=== PATIENT | female | born 1935 | race Caucasian/White ===

== ENCOUNTER 2018-07-04 10:46 | Inpatient (IN) | payer BC ==
[~2018-07-04 10:46] MED LIST: GLYCOPYRROLATE 0.4 MG INJ; NEOSTIGMINE 3 MG/3 ML SYRINGE
[2018-07-04] MEDS ORDERED: PROPOFOL 20 ML (12:55)
[2018-07-04] MEDS ORDERED: ROCURONIUM 50 MG INJ ×2 (12:55→12:59)
[2018-07-04] MEDS ORDERED: MIDAZOLAM 1 MG/ML 2 ML INJ (12:55)
[2018-07-04] MEDS ORDERED: FENTAnyl 50 MCG/ML VIAL (12:55)
[2018-07-04] MEDS ORDERED: CEFAZOLIN 1 GM INJ (12:55)
[2018-07-04] MEDS ORDERED: ROPIVACAINE 0.5 % 30 ML VIAL (12:56)
[2018-07-04] MEDS ORDERED: POLYMYXIN B 500000 UNIT INJ (12:57)
[2018-07-04] MEDS: CEFAZOLIN 2 GM/50 ML (PMX) 50 ML IVPB (13:25)
[2018-07-04] MEDS: TRANEXAMIC ACID 1,000 MG in NS 100 ML INTRA-OP X1 IVPB (13:30)
[2018-07-04] MEDS ORDERED: ONDANSETRON 4 MG INJ (14:08)
[2018-07-04] MEDS ORDERED: FAMOTIDINE 20 MG INJ (14:08)
[2018-07-04] MEDS ORDERED: DEXAMETHASONE 4 MG/ML 1 ML INJ (14:08)
[2018-07-04] MEDS ORDERED: METOCLOPRAMIDE 10 MG INJ (14:08)
[2018-07-04] MEDS: BACITRACIN 50000 UNITS INJ IRR (14:10)
[2018-07-04] MEDS ORDERED: PHENYLephrine (100 MCG/ML) 5ML SYG (14:11)
[2018-07-04] MEDS ORDERED: ALBUMIN HUMAN 25% 100 ML (14:12)
[2018-07-04] MEDS: POLYMYXIN B 500000 UNIT INJ IRR (14:12)
[2018-07-04] MEDS: TRANEXAMIC ACID 1,000 MG in NS 100 ML PRE-OP X1 IVPB (14:35)
[2018-07-04] MEDS ORDERED: NALBUPHINE HCL (10 MG/1 ML) INJ IV (15:00)
[2018-07-04] MEDS ORDERED: morphine 2 MG INJ IV ×2 (15:00)
[2018-07-04] MEDS ORDERED: HYDROmorphONE 0.5 MG/0.5 ML SYG IV (15:00)
[2018-07-04] MEDS ORDERED: METOCLOPRAMIDE 10 MG INJ IV (15:00)
[2018-07-04] MEDS ORDERED: OXYCODONE/ACETAMINOPHEN (5/325) TAB PO (15:00)
[2018-07-04] MEDS ORDERED: NALOXONE (0.4 MG/ML) INJ IV ×2 (15:00→16:30)
[2018-07-04] MEDS ORDERED: HYDROCODONE/APAP (5/325) TAB PO (15:00)
[2018-07-04] MEDS ORDERED: FENTAnyl 50 MCG/ML VIAL IV ×3 (15:00)
[2018-07-04] MEDS ORDERED: LABETALOL HCL 20MG INJ IV (15:00)
[2018-07-04] MEDS ORDERED: DIPHENHYDRAMINE 50 MG INJ IV ×3 (15:00→16:30)
[2018-07-04] MEDS ORDERED: HYDROmorphONE 1 MG/5 ML IV SYRINGE IV ×3 (15:00)
[2018-07-04] MEDS ORDERED: ONDANSETRON 4 MG INJ IV ×2 (15:00)
[2018-07-04] MEDS ORDERED: EPHEDrine SULFATE 50 MG/5 ML SYG IV (15:00)
[2018-07-04] MEDS ORDERED: ALBUMIN HUMAN 5% 250 ML IV (15:00)
[2018-07-04] MEDS ORDERED: hydrALAzine 20 MG INJ IV (15:00)
[2018-07-04] MEDS ORDERED: ACETAMINOPHEN 500 MG TAB PO (15:00)
[2018-07-04] MEDS ORDERED: NEOSTIGMINE 3 MG/3 ML SYRINGE ×5 (16:09)
[2018-07-04] MEDS: LACTATED RINGER'S 1,000 ML IV* (16:26)
[2018-07-04] MEDS ORDERED: oxyCODONE 5 MG TAB PO (16:30)
[2018-07-04] MEDS ORDERED: BISACODYL 10 MG SUPP PR (16:30)
[2018-07-04] MEDS ORDERED: MAGNESIUM HYDROXIDE 30ML CUP PO (16:30)
[2018-07-04] MEDS ORDERED: NA PHOSPHATE/BIPHOS 133 ML ENEMA PR (16:30)
[2018-07-04] MEDS ORDERED: NACL 0.9% 3 ML SYG IV (16:30)
[2018-07-04] MEDS ORDERED: SENNA/DOCUSATE NA (8.6MG/50MG) TAB PO (16:30)
[2018-07-04] MEDS ORDERED: BETHANECHOL 25 MG TAB PO (16:30)
[2018-07-04] MEDS ORDERED: CEFAZOLIN 2 GM/50 ML (PMX) 0 ML IVPB (16:58)
[2018-07-04] MEDS: ASPIRIN (EC) 325 MG TAB PO (17:02)
[2018-07-04] MEDS: DOCUSATE SODIUM 100 MG CAP PO (17:02)
[2018-07-04] MEDS: ONDANSETRON 4 MG INJ IV ×2 (17:07→22:30)
[2018-07-04] MEDS: CEFAZOLIN 1 GM/50 ML (PMX) 50 ML IVPB (17:09)
[2018-07-04] MEDS: MEPERIDINE 25 MG INJ IV (17:28)
[2018-07-04] MEDS: SOD CHLORIDE 0.9% 1,000 ML IV (18:46)
[2018-07-04] MEDS: GABAPENTIN 300 MG CAP PO (20:21)
[2018-07-04] MEDS: HYDROmorphONE 0.5 MG/0.5 ML SYG IV (22:51)
[2018-07-05] MEDS: CEFAZOLIN 1 GM/50 ML (PMX) 50 ML IVPB ×2 (01:16→08:46)
[2018-07-05] MEDS: ONDANSETRON 4 MG INJ IV ×2 (03:39→13:03)
[2018-07-05] MEDS: SOD CHLORIDE 0.9% 1,000 ML IV ×3 (04:49→22:37)
[2018-07-05] MEDS: PANTOPRAZOLE (EC) 40 MG TAB PO (05:07)
[2018-07-05 05:25] LABS: ADD MAN DIFF? NO
[2018-07-05 05:29] LABS: WHITE BLOOD COUNT 9.5 10^3/ul (4.8-10.8)
[2018-07-05 05:29] LABS: BASOPHILS % 0.1 % (0.0-2.0); HEMATOCRIT 25.7 % (37.0-47.0); HEMOGLOBIN 8.1 g/dl (12.0-16.0); LYMPHOCYTES # 0.8 10^3/ul (0.8-2.9); MEAN CORPUSCULAR HGB CONC 31.5 g/dl (32.0-37.0); MEAN CORPUSCULAR VOLUME 98.5 fl (82.0-101.0); MEAN PLATELET VOLUME 10.1 fl (7.4-10.4); MONOCYTE # 0.4 10^3/ul (0.3-0.9); MONOCYTES % 4.1 % (0.0-11.0); NEUTROPHIL # 8.3 10^3/ul (1.6-7.5); NEUTROPHILS % 87.5 % (39.0-77.0); PLATELET COUNT 194 10^3/UL (140-415); RED BLOOD COUNT 2.61 10^6/ul (4.20-5.40); RED CELL DISTRIBUTION WIDTH 13.5 % (11.5-14.5)
[2018-07-05 06:11] LABS: ANION GAP 9 (5-13); BLOOD UREA NITROGEN 20 mg/dl (7-20); CALCIUM 8.5 mg/dl (8.4-10.2); CARBON DIOXIDE 26 mmol/L (21-31); CHLORIDE 104 mmol/L (97-110); CREATININE 0.91 mg/dl (0.44-1.00); GLUCOSE 121 mg/dl (70-220); POTASSIUM 5.8 mmol/L (3.5-5.1); SODIUM 139 mmol/L (135-144)
[2018-07-05] MEDS: DOCUSATE SODIUM 100 MG CAP PO ×2 (08:45→21:44)
[2018-07-05] MEDS: FERROUS FUMARATE (SR) TAB PO ×2 (08:45→21:44)
[2018-07-05] MEDS: GABAPENTIN 300 MG CAP PO ×4 (08:45→21:44)
[2018-07-05] MEDS: ASPIRIN (EC) 325 MG TAB PO (08:46)
[2018-07-05] MEDS ORDERED: CELECOXIB 200 MG CAP PO (09:00)
[2018-07-05] MEDS: METOPROLOL (XL) 25 MG TAB PO (09:13)
[2018-07-05] MEDS: ALENDRONATE 70 MG TAB PO (09:50)
[2018-07-05] MEDS: NA POLYST SULFON 15 GM/60 ML BTL PR (09:51)
[2018-07-05] MEDS: oxyCODONE 5 MG TAB PO ×4 (09:57→21:52)
[2018-07-05] MEDS: CELECOXIB 100 MG CAP PO ×2 (13:02→21:45)
[2018-07-05 16:12] LABS: POTASSIUM 4.8 mmol/L (3.5-5.1)
[2018-07-06 05:17] LABS: ADD MAN DIFF? NO
[2018-07-06 05:25] LABS: WHITE BLOOD COUNT 8.6 10^3/ul (4.8-10.8)
[2018-07-06 05:25] LABS: BASOPHILS % 0.1 % (0.0-2.0); EOSINOPHILS # 0.1 10^3/ul (0.0-0.5); EOSINOPHILS % 1.2 % (0.0-7.0); HEMATOCRIT 23.8 % (37.0-47.0); HEMOGLOBIN 7.5 g/dl (12.0-16.0); LYMPHOCYTES # 1.5 10^3/ul (0.8-2.9); LYMPHOCYTES % 17.9 % (15.0-51.0); MEAN CORPUSCULAR HEMOGLOBIN 31.1 pg (29.0-33.0); MEAN CORPUSCULAR HGB CONC 31.5 g/dl (32.0-37.0); MEAN CORPUSCULAR VOLUME 98.8 fl (82.0-101.0); MEAN PLATELET VOLUME 10.1 fl (7.4-10.4); MONOCYTE # 0.8 10^3/ul (0.3-0.9); MONOCYTES % 9.5 % (0.0-11.0); NEUTROPHIL # 6.1 10^3/ul (1.6-7.5); PLATELET COUNT 181 10^3/UL (140-415); RED BLOOD COUNT 2.41 10^6/ul (4.20-5.40); RED CELL DISTRIBUTION WIDTH 13.8 % (11.5-14.5)
[2018-07-06 05:46] LABS: MAGNESIUM 1.9 mg/dl (1.7-2.5)
[2018-07-06 05:50] LABS: ANION GAP 8 (5-13); BLOOD UREA NITROGEN 22 mg/dl (7-20); CALCIUM 8.2 mg/dl (8.4-10.2); CARBON DIOXIDE 27 mmol/L (21-31); CHLORIDE 103 mmol/L (97-110); CREATININE 1.18 mg/dl (0.44-1.00); GLUCOSE 91 mg/dl (70-220); POTASSIUM 4.8 mmol/L (3.5-5.1); SODIUM 138 mmol/L (135-144)
[2018-07-06] MEDS: PANTOPRAZOLE (EC) 40 MG TAB PO (06:10)
[2018-07-06] MEDS: oxyCODONE 5 MG TAB PO ×2 (06:10→10:19)
[2018-07-06] MEDS: LEVOTHYROXINE 100 MCG TAB PO (06:10)
[2018-07-06] MEDS: CELECOXIB 100 MG CAP PO (08:45)
[2018-07-06] MEDS: ASPIRIN (EC) 325 MG TAB PO (08:45)
[2018-07-06] MEDS: FERROUS FUMARATE (SR) TAB PO (08:46)
[2018-07-06] MEDS: GABAPENTIN 300 MG CAP PO ×2 (08:46→13:57)
[2018-07-06] MEDS: DOCUSATE SODIUM 100 MG CAP PO (08:46)
[2018-07-06] MEDS: METOPROLOL (XL) 25 MG TAB PO (09:00)
== END 2018-07-06 16:05 | disposition home health service (06) | DRG 468 ==
LOC: REC 10:46 → MS1 17:49
PROC: 0SR904A Replacement of Right Hip Joint with Ceramic on Polyethylene Synthetic Substitute, Uncemented, Open Approach (ICD-10-PCS; principal; 2018-07-04 12:30)
PROC: 0SP90JZ Removal of Synthetic Substitute from Right Hip Joint, Open Approach (ICD-10-PCS; 2018-07-04 12:30)
DX: T84.89XA Other specified complication of internal orthopedic prosthetic devices, implants and grafts, initial encounter (principal); T84.84XA Pain due to internal orthopedic prosthetic devices, implants and grafts, initial encounter; Z96.641 Presence of right artificial hip joint
CPT/HCPCS: 73530; 80048; 83735; 84132; 85025; 86850; 86900; 86901; 87070; 87075; 88300; 97110; 97116; 97162; 97166; 97530

== ENCOUNTER 2019-02-27 06:32 | Inpatient (IN) | payer BC ==
[2019-02-27] MEDS: TRANEXAMIC ACID 1GM/100ML(PMX) 100 ML AT CLOSURE X1 IVPB (06:30)
[2019-02-27] MEDS: TRANEXAMIC ACID 1GM/100ML(PMX) 100 ML AT INCISION X1 IVPB (06:30)
[2019-02-27] MEDS: CEFAZOLIN 2 GM/50 ML (PMX) 50 ML (FOR WT < 120 KG) IVPB (06:30)
[2019-02-27] MEDS: ACETAMINOPHEN 1000MG/100ML IV 100 ML IVPB (07:22)
[2019-02-27] MEDS: LACTATED RINGER'S 1,000 ML IV ×3 (07:22→13:11)
[2019-02-27] MEDS: DEXAMETHASONE 4 MG/ML 1 ML INJ IV (07:22)
[2019-02-27] MEDS ORDERED: TRANEXAMIC ACID 1GM/100ML(PMX) 200 ML (07:28)
[2019-02-27] MEDS ORDERED: PROPOFOL 20 ML (08:53)
[2019-02-27] MEDS ORDERED: CEFAZOLIN 1 GM INJ (08:53)
[2019-02-27] MEDS ORDERED: LIDOCAINE 2% (SDV) 5 ML INJ (08:53)
[2019-02-27] MEDS ORDERED: FENTAnyl 50 MCG/ML VIAL (09:17)
[2019-02-27] MEDS ORDERED: ONDANSETRON 4 MG INJ (09:38)
[2019-02-27] MEDS ORDERED: FAMOTIDINE 20 MG INJ (09:38)
[2019-02-27] MEDS: POLYMYXIN B 500000 UNIT INJ (09:46)
[2019-02-27] MEDS: BACITRACIN 50000 UNITS INJ (09:46)
[2019-02-27] MEDS ORDERED: ROPIVACAINE 0.2% 20 ML VIAL (10:44)
[2019-02-27] MEDS ORDERED: oxyCODONE 5 MG TAB PO (11:30)
[2019-02-27] MEDS ORDERED: NALOXONE (0.4 MG/ML) INJ IV (11:30)
[2019-02-27] MEDS ORDERED: MAGNESIUM HYDROXIDE 30ML CUP PO (11:30)
[2019-02-27] MEDS ORDERED: NACL 0.9% 3 ML SYG IV (11:30)
[2019-02-27] MEDS: CEFAZOLIN 2 GM/50 ML (PMX) 50 ML IVPB ×2 (12:26→19:57)
[2019-02-27] MEDS ORDERED: PROCHLORPERAZINE 10 MG INJ IV (12:30)
[2019-02-27] MEDS ORDERED: MEPERIDINE 25 MG INJ IV (12:30)
[2019-02-27] MEDS ORDERED: FENTAnyl 50 MCG/ML VIAL IV (12:30)
[2019-02-27] MEDS ORDERED: HYDROmorphONE 1 MG/5 ML IV SYRINGE IV ×2 (12:30)
[2019-02-27] MEDS ORDERED: DIPHENHYDRAMINE 50 MG INJ IV (12:30)
[2019-02-27] MEDS ORDERED: ONDANSETRON 4 MG INJ IV (12:30)
[2019-02-27] MEDS: OLOPATADINE 0.1% 5 ML OPH BOTH EYES (15:39)
[2019-02-27] MEDS: GABAPENTIN 100 MG CAP PO ×3 (15:39→21:38)
[2019-02-27] MEDS: oxyCODONE 5 MG TAB PO (19:49)
[2019-02-28] MEDS: LACTATED RINGER'S 1,000 ML IV (03:10)
[2019-02-28 05:40] LABS: ADD MAN DIFF? NO
[2019-02-28 05:43] LABS: BASOPHILS % 0.1 % (0.0-2.0); HEMATOCRIT 28.8 % (37.0-47.0); LYMPHOCYTES # 1.2 10^3/ul (0.8-2.9); LYMPHOCYTES % 8.3 % (15.0-51.0); MEAN CORPUSCULAR HEMOGLOBIN 30.5 pg (29.0-33.0); MEAN CORPUSCULAR HGB CONC 31.3 g/dl (32.0-37.0); MEAN CORPUSCULAR VOLUME 97.6 fl (82.0-101.0); MEAN PLATELET VOLUME 10.1 fl (7.4-10.4); MONOCYTES % 7.1 % (0.0-11.0); NEUTROPHIL # 11.9 10^3/ul (1.6-7.5); NEUTROPHILS % 84.1 % (39.0-77.0); PLATELET COUNT 183 10^3/UL (140-415); RED BLOOD COUNT 2.95 10^6/ul (4.20-5.40); RED CELL DISTRIBUTION WIDTH 13.7 % (11.5-14.5)
[2019-02-28 05:43] LABS: WHITE BLOOD COUNT 14.2 10^3/ul (4.8-10.8)
[2019-02-28] MEDS: LEVOTHYROXINE 100 MCG TAB PO (06:26)
[2019-02-28] MEDS: CEFAZOLIN 2 GM/50 ML (PMX) 50 ML IVPB (06:27)
[2019-02-28 06:37] LABS: ANION GAP 6 (5-13); BLOOD UREA NITROGEN 27 mg/dl (7-20); CALCIUM 8.6 mg/dl (8.4-10.2); CARBON DIOXIDE 28 mmol/L (21-31); CHLORIDE 103 mmol/L (97-110); CREATININE 0.97 mg/dl (0.44-1.00); GLUCOSE 121 mg/dl (70-220); POTASSIUM 4.8 mmol/L (3.5-5.1); SODIUM 137 mmol/L (135-144)
[2019-02-28] MEDS: oxyCODONE 5 MG TAB PO ×2 (06:42→16:16)
[2019-02-28] MEDS: ASPIRIN (EC) 81 MG TAB PO (08:27)
[2019-02-28] MEDS: DOCUSATE SODIUM 100 MG CAP PO (08:27)
[2019-02-28] MEDS: CELECOXIB 100 MG CAP PO (08:27)
[2019-02-28] MEDS: GABAPENTIN 100 MG CAP PO (08:27)
[2019-02-28] MEDS: METOPROLOL (XL) 25 MG TAB PO (08:29)
[2019-02-28] MEDS: FERROUS SULFATE (EC) 325 MG TAB PO ×2 (08:30→10:31)
[2019-02-28] MEDS ORDERED: NON-FORMULARY/PATIENT OWN MED (Ergocalciferol (Vitamin D2) (Vitamin D2) 2,000 UNIT) PO (09:00)
[2019-02-28] MEDS: ERGOCALCIFEROL (8000 UNITS/ML PO SYG) PO (10:45)
[2019-02-28] MEDS ORDERED: ONDANSETRON 4 MG INJ IV (11:30)
[2019-03-01] MEDS ORDERED: PANTOPRAZOLE (EC) 40 MG TAB PO (06:00)
== END 2019-02-28 17:00 | disposition home health service (06) | DRG 470 ==
LOC: REC 06:32 → MS1 13:25
PROC: 0SRC0J9 Replacement of Right Knee Joint with Synthetic Substitute, Cemented, Open Approach (ICD-10-PCS; principal; 2019-02-27 08:30)
DX: M17.11 Unilateral primary osteoarthritis, right knee (principal); E03.9 Hypothyroidism, unspecified; I10 Essential (primary) hypertension; M81.0 Age-related osteoporosis without current pathological fracture; M16.0 Bilateral primary osteoarthritis of hip; E78.5 Hyperlipidemia, unspecified; Z85.3 Personal history of malignant neoplasm of breast
CPT/HCPCS: 73560; 80048; 85025; 86850; 86900; 86901; 87081; 88304; 88311; 97116; 97161; 97530; 99217